=== PATIENT | female | born 1970 | race Caucasian/White ===

== ENCOUNTER 2020-07-28 11:25 | Outpatient (REF) | payer OTHER, SELFPAY ==
--- NOTE | 2020-07-28 10:30 | PAPFT_PTH ---
PATIENT: JAMES PADILLA LOC: [facility] U#:[id number] AGE/SX: 50/F ROOM: RE07/28/[address]: CHUY Bello : 1970 BED: DIS: 07/28/2020 SPEC #: [id number] RECD: 07/28/20 13:03 STATUS: ARNOLDO REYajaira #: [id number] JENNIFER: 07/28/20 10:[address]: aGyatri Kunz DEPT: [facility] Cytology RECD BY: Tawana Bill ENTERED: 07/28/20 13:03 SP TYPE: PAPFT DORCAS DR: Unknown,Unknown Tissues: 1 - CX/ENDOCX FOR PAP SMEARS Procedures: PAP THIN PREP/[facility] Screening HPV DNA PROBE Comments: [id number]
== END 2020-07-28 11:45 ==
LOC: LBN 11:25
PROVIDERS: Visit Provider Nurse Practitioner Family
DX: Z12.4 Encounter for screening for malignant neoplasm of cervix (principal); Z11.51 Encounter for screening for human papillomavirus (HPV)
CPT/HCPCS: 88142; 87624